=== PATIENT | male | born 2000 | race Two or more races ===

== ENCOUNTER 2021-08-20 20:59 | Emergency (ER) | payer SELFPAY ==
[~2021-08-20] VITALS: Ht 175.3 cm; Wt 126.8 kg
[2021-08-20] MEDS ORDERED: OMEPRAZOLE20 MG PO (21:13)
[2021-08-20] MEDS ORDERED: ONDANSETRON ODT8 MG PO (21:13)
[2021-08-20] MEDS ORDERED: PROMETHAZINE HC25 M1 PO (22:49)
== END 2021-08-20 22:59 | disposition home or self-care (01) ==
LOC: ED 20:59
DX: R10.32 Left lower quadrant pain (principal); F10.10 Alcohol abuse, uncomplicated; R11.2 Nausea with vomiting, unspecified; R73.03 Prediabetes; Z79.899 Other long term (current) drug therapy
CPT/HCPCS: 36415; 51798; 80053; 81001; 83690; 85025; 99284-25